=== PATIENT | male | born 1980 | race African-American/Black ===

== ENCOUNTER 2020-01-18 09:14 | Emergency (ER) | payer OTHER ==
[~2020-01-18] VITALS: Ht 177.8 cm; Wt 90.9 kg
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
[2020-01-18] MEDS ORDERED: CYCL10TA9 PO (11:11)
[2020-01-18] MEDS ORDERED: DICL75TA2 PO (11:11)
[2020-01-18] MEDS ORDERED: ACHD5005 PO (11:11)
--- NOTE | 2020-01-18 11:14 | NUR ---
Unable to do drug screen due to not having staff available.
[2020-01-18] MEDS ORDERED: HYDROcodone/APAP 5 MG/325 MG (LORTAB) TAB PO ONE (11:15)
[2020-01-18 11:45] VITALS: BP 134/55
== END 2020-01-18 11:45 | disposition home or self-care (01) ==
LOC: ER FS 09:15
DX: S32.038A Other fracture of third lumbar vertebra, initial encounter for closed fracture (principal); S46.911A Strain of unspecified muscle, fascia and tendon at shoulder and upper arm level, right arm, initial encounter; Z88.0 Allergy status to penicillin; V48.5XXA Car driver injured in noncollision transport accident in traffic accident, initial encounter
CPT/HCPCS: 70450; 72100; 72131; 73030